=== PATIENT | male | born 1955 | race African-American/Black ===

== ENCOUNTER 2017-06-13 06:06 | Emergency (ER) | payer OTHER ==
[2017-06-13 07:44] LABS: #Eosinphils 0.2 thou/uL (0.0-0.7); #Monocytes 0.8 thou/uL (0.11-0.59); %Basophils 0.5 % (0.0-1.0); %Eosinophils 1.6 % (0.0-10.0); %Lymphocytes 10.2 % (21.0-51.0); %Monocytes 8.2 % (0.0-10.0); %Neutrophils 79.6 % (42.0-75.0); Hemoglobin 15.4 g/dL (14.0-18.0); Mean Corpuscular HGB CONC 33.3 g/dL (32.0-36.0); Mean Corpuscular Hemoglobin 28.2 pg (27.0-31.0); Mean Corpuscular Volume 84.5 fl (80.0-94.0); Mean Platelet Volume 7.7 fL (7.4-10.4); Platelet Count 231 thou/uL (130-400); RBC Distribution Width 12.8 % (11.5-14.5); Red Blood Cell (RBC) Count 5.46 mill/uL (4.70-6.10)
--- NOTE | 2017-06-13 07:57 | CT ---
BRAIN CT WITHOUT IV CONTRAST: Date: 06/13/17 HISTORY: 61-year-old male with altered mental status, dizziness, and lightheadedness. FINDINGS: No focal mass or midline shift. No intra or extra-axial hemorrhage. Very minimal right maxillary sinu s mucosal changes. IMPRESSION: No acute intracranial process. No mass or bleed. POS: [facility]
[2017-06-13 08:01] LABS: INR-International Normal Ratio 0.9; Prothrombin Time 12.6 SEC (12.0-14.7)
[2017-06-13 08:09] LABS: ALT (SGPT) 17 U/L (8-55); AST (SGOT) 17 U/L (5-34); Albumin 4.1 g/dL (3.4-4.8); Alkaline Phosphatase 56 U/L (40-150); Anion Gap 10 mmol/L (10-20); BUN (Urea Nitrogen) 12 mg/dL (8.4-25.7); Bilirubin, Total 0.4 mg/dL (0.2-1.2); Calc. Creatinine Clearance 0 mL/min (70-130); Calcium 9.8 mg/dL (7.8-10.44); Carbon Dioxide 27 mmol/L (23-31); Chloride 105 mmol/L (98-107); Estimated GFR-MDRD 87; Globulin 2.8 g/dL (2.4-3.5); Glucose 124 mg/dL (80-115); Potassium 4.6 mmol/L (3.5-5.1); Protein, Total 6.9 g/dL (5.8-8.1); Sodium 137 mmol/L (136-145)
[2017-06-13 08:12] LABS: CKMB 2.8 ng/mL (0-6.6); Troponin I Less than 0.010 ng/mL (< 0.028)
--- NOTE | 2017-06-13 08:29 | RAD ---
CHEST 1 VIEW: Date: 06/13/17 HISTORY: 61-year-old male with altered mental status, dizziness, sciatic pain. FINDINGS: Relatively poor inspiration. Right hemidiaphragm elevation. No confluent pneumonia, overt edema, or p leural effusion. IMPRESSION: Suboptimal inspiration with right hemidiaphragm elevation. No confluent pneumonia, overt edema, pleur al effusion, or other acute intrathoracic disease. No old studies. POS: [facility]
[2017-06-13] MEDS ORDERED: Naloxone HCl 0.4 mg/ml Vial ONE (08:50)
[2017-06-13 10:03] LABS: Bilirubin Negative (Negative); Blood, Urine Negative (Negative); Clarity CLEAR (Clear); Glucose, Urine (Dipstick) Negative (Negative); Leukocyte Negative (Negative); Nitrite Negative (Negative); Protein, Urine (Dipstick) Trace mg/dL (Neg-Trace); pH, Urine 8.5 (5.0-9.0)
[2017-06-13 10:30] LABS: Amphetamine Not Detected (NotDetected); Barbiturates Screen Not Detected (NotDetected); Benzodiazepine Screen Not Detected (NotDetected); Cocaine Metabolite Screen Not Detected (NotDetected); Medtox Control Line Valid? VALID (VALID); Medtox Reader # READER 4; Methadone Not Detected (NotDetected); Methamphetamine Not Detected (NotDetected); Opiate Screen Not Detected (NotDetected); Oxycodone Screen Not Detected (NotDetected); Phencyclidine (PCP) Not Detected (NotDetected); THC/Cannabinoid Screen Not Detected (NotDetected); Tricyclic Screen Not Detected (NotDetected)
== END 2017-06-13 10:14 | disposition short-term general hospital (02) ==
LOC: ERS 06:06
DX: R42 Dizziness and giddiness (principal); H57.02 Anisocoria; F43.10 Post-traumatic stress disorder, unspecified; Z79.891 Long term (current) use of opiate analgesic
CPT/HCPCS: 36415; 70450; 71045; 80053; 80306; 81003; 82553; 84443; 84484; 85025; 85610; 93005; 96361; 96374; J2310